=== PATIENT | female | born 1950 | race Caucasian/White ===

== ENCOUNTER 2017-02-12 16:31 | Emergency (ER) | payer OTHER ==
[~2017-02-12] VITALS: Ht 157.5 cm; Wt 44.0 kg
--- NOTE | 2017-02-12 16:31 | NUR ---
PT BIB [facility] WITH A C/O SYNCOPAL EPISODE AT THE [facility]ST BUY. PT HIT HER FOREHEAD ON THE COUNTER AND THEN HER CHIN. LAC NOTED ON CHIN AND FOREHEAD. PT WAS INCONTINENT DURING SYNCOPAL EPISODE. PT IS AA&O X4. PT IS ON THE MONITOR AND CONTINUOUS PULSE OX.
--- NOTE | 2017-02-12 16:45 | NUR ---
PT ON THE BEDSIDE COMODE. BM X 1 NOTED.
[2017-02-12] MEDS ORDERED: LOVA10TA PO (16:48)
[2017-02-12] MEDS ORDERED: MULT1TAB73 PO (16:48)
[2017-02-12] MEDS ORDERED: LIDOCAINE 1%-EPI 1:100,000 50 ML VIAL IJ ONE (16:50)
[2017-02-12 16:52] LABS: BASOPHILS # (AUTO) 0.1 /CMM (0.0-0.2); BASOPHILS % (AUTO) 0.8 % (0.0-2.0); EOSINOPHILS # (AUTO) 0.2 /CMM (0.0-0.7); EOSINOPHILS % (AUTO) 2.4 % (0.0-6.0); HEMATOCRIT 42 % (33-45); HEMOGLOBIN 13.9 g/dL (11.5-14.8); LYMPHOCYTES # (AUTO) 3.2 /CMM (0.8-4.8); LYMPHOCYTES % (AUTO) 35.1 % (20.0-44.0); MEAN CORPUSCULAR HEMOGLOBIN 32 PG (26.0-33.0); MEAN CORPUSCULAR HGB CONC 33 g/dl (31.0-36.0); MEAN CORPUSCULAR VOLUME 97 fL (82-100); MONOCYTES # (AUTO) 0.7 /CMM (0.1-1.30); NEUTROPHILS % (AUTO) 53.7 % (43.0-81.0); PLATELET COUNT (AUTO) 189 /CMM (150-450); RDW COEFFICIENT OF VARIATION 13.5 (11.5-15.0); RED BLOOD CELL COUNT(AUTO) 4.31 MIL/uL (4.0-5.2); WHITE BLOOD COUNT (AUTO) 9.2 K/uL (4.3-11.0)
[2017-02-12] MEDS ORDERED: IV NS 0.9% 1,000 ML BAG IV ONE (17:00)
[2017-02-12] MEDS ORDERED: TDAP [DIPH/PERTUSSIS/TET] 0.5 ML VIAL IM ONE (17:00)
[2017-02-12] MEDS ORDERED: LIDOCAINE 2%-EPI 1:100,000 30 ML VIAL TP ONE (17:00)
--- NOTE | 2017-02-12 17:00 | NUR ---
WOUND CARE IN PROGRESS AT THE BEDSIDE.
[2017-02-12 17:11] LABS: ALANINE AMINOTRANSFERASE 15 U/L (12-78); ALBUMIN 3.4 g/dL (3.4-5.0); ALKALINE PHOSPHATASE 93 U/L (46-116); ASPARTATE AMINOTRANSFERASE 25 U/L (15-37); BILIRUBIN,TOTAL 0.3 mg/dL (0.2-1.0); CALCIUM, SERUM 9.4 mg/dL (8.5-10.1); CARBON DIOXIDE 27 mmol/L (21-32); CHLORIDE 105 mmol/L (98-107); CREATININE 0.8 mg/dL (0.6-1.3); GLUCOSE 122 mg/dL (74-106); POTASSIUM 3.4 mmol/L (3.5-5.1); SODIUM SERUM 139 mmol/L (136-145); TOTAL PROTEIN, SERUM 7.1 g/dL (6.4-8.2); UREA NITROGEN, BLOOD 20 mg/dL (7-18)
[2017-02-12 17:13] LABS: TROPONIN I < 0.017 ng/mL (0.00-0.056)
[2017-02-12 17:22] LABS: INR 0.89 (0.87-1.13); PROTHROMBIN TIME 9.3 SECS (9.5-12.7)
--- NOTE | 2017-02-12 17:37 | NUR ---
BALDEMAR RUIZ IS AT THE BEDSIDE SUTURING PT.
[2017-02-12] MEDS ORDERED: MORPHINE SULFATE INJ 10 MG/ML DISP.SYRIN ONE (17:47)
[2017-02-12] MEDS ORDERED: ONDANSETRON HCL/PF 4 MG/2 ML VIAL ONE (17:47)
--- NOTE | 2017-02-12 17:50 | NUR ---
PT'S IV WAS LEAKING. IV FIXED AND RETAPED. IV IS FLUSHING AND BENIGN.
--- NOTE | 2017-02-12 17:52 | NUR ---
PT REC'D MEDICATION ORDERED
[2017-02-12] MEDS ORDERED: MORPHINE SULFATE INJ 2 MG/ML DISP.SYRIN IV ONE (18:00)
[2017-02-12] MEDS ORDERED: ONDANSETRON HCL/PF 4 MG/2 ML VIAL IV ONE (18:00)
--- NOTE | 2017-02-12 18:05 | NUR ---
PT LEFT FOR CT.
--- NOTE | 2017-02-12 19:15 | NUR ---
REPORT GIVEN TO ESTEFANY GRECO
--- NOTE | 2017-02-12 21:15 | NUR ---
IV removed. Catheter intact and site benign. Pressure and 4x4 applied to site. No bleeding noted. Patient discharged to home in stable condition. Written and verbal after care instructions given. Patient verbalizes understanding of instruction. Patient is wheeled to private car, accompanied by . No further complaints.
[2017-02-12 21:16] VITALS: BP 96/50
== END 2017-02-12 21:16 | disposition home or self-care (01) ==
LOC: ER 16:32
DX: S01.81XA Laceration without foreign body of other part of head, initial encounter (principal); E78.5 Hyperlipidemia, unspecified; W18.30XA Fall on same level, unspecified, initial encounter; Y93.01 Activity, walking, marching and hiking; Y92.512 Supermarket, store or market as the place of occurrence of the external cause; Y99.8 Other external cause status
CPT/HCPCS: 12014; 36415; 70450; 71010; 80048; 80076; 84484; 85025; 85730; 93005; 96361; 96374; 96375; 99285; A4606; A6402; A6403; J2270; J2405; J3490; J7030; Z7610